=== PATIENT | female | born 1985 | race African-American/Black ===

== ENCOUNTER 2017-08-01 11:07 | Emergency (ER) | payer MEDICAID ==
[~2017-08-01] VITALS: Ht 170.2 cm; Wt 110.0 kg
[~2017-08-01 11:07] MED LIST: FERR325C PO; IBUP-1008 PO; MULT-1116 PO
[2017-08-01] MEDS ORDERED: ACETAMINOPHEN 325MG TABLET PO STA (11:18)
[2017-08-01] MEDS ORDERED: SODIUM CHLORIDE 0.9% 1000ML BAG (SEPSIS BOLUS) IV ONE (11:30)
[2017-08-01 11:55] LABS: HEMATOCRIT. 41.8 % (36.0-48.0); HEMOGLOBIN. 13.9 g/dL (12.0-16.0); MEAN CORPUSCULAR HEMOGLOBIN 29.3 pg (28.0-32.0); MEAN CORPUSCULAR VOLUME 88.1 fL (81.0-99.0); MEAN PLATELET VOLUME 9.8 fl (7.4-10.4); PLATELET 145 x1000/uL (130-400); RED BLOOD CELL COUNT 4.75 mill/uL (4.2-5.4); RED CELL DISTRIBUTION WIDTH 14.5 % (11.6-14.6)
[2017-08-01 11:58] LABS: PROTHROMBIN TIME 10.9 sec (9.4-11.6)
[2017-08-01 12:07] LABS: B-HCG QUANTITATIVE < 1 mIU/mL (<3); CARBON DIOXIDE 22 mEq/L (21-32); CHLORIDE 108 mEq/L (98-107)
[2017-08-01 12:19] LABS: CLARITY URINE CLOUDY (CLEAR); COLOR URINE YELLOW (YELLOW); KETONES URINE NEGATIVE (NEGATIVE); LEUKOCYTE ESTERASE URINE 1+ (NEGATIVE); NITRITE URINE NEGATIVE (NEGATIVE); OCCULT BLOOD URINE 3+ (NEGATIVE); PH URINE 6.5 (4.5-8.0); PROTEIN URINE NEGATIVE (NEGATIVE); SPECIFIC GRAVITY URINE 1.026 (1.005-1.030)
[2017-08-01 12:43] LABS: PLATELET ESTIMATE NORMAL
[2017-08-01] MEDS ORDERED: HYDRALAZINE 20MG/ML VIAL IV ONE (13:00)
[2017-08-01] MEDS ORDERED: CEFTRIAXONE 1 G PREMIX 50 ML IV ONE (13:00)
[2017-08-01] MEDS ORDERED: AZITHROMYCIN 500 MG in DEXT 5% WATER 250 ML IV ONE (13:00)
[2017-08-01 15:45] VITALS: BP 148/88
== END 2017-08-01 16:03 | disposition home or self-care (01) ==
LOC: ER 11:08
DX: J11.00 Influenza due to unidentified influenza virus with unspecified type of pneumonia (principal); N30.00 Acute cystitis without hematuria; I10 Essential (primary) hypertension; R42 Dizziness and giddiness; R79.1 Abnormal coagulation profile
CPT/HCPCS: 36415; 70450; 71045; 80053; 81001; 81025; 83605; 84702; 85025; 85610; 87040; 87804; 93005; 96365; 96366; 96368; 99285; J0456; J0696; J7030; Z7610; J7060

== ENCOUNTER 2022-05-25 14:43 | Emergency (ER) | payer MEDICAID, OTHER ==
[~2022-05-25] VITALS: Ht 172.7 cm; Wt 100.0 kg
[2022-05-25 14:53] VITALS: BP 172/83
[2022-05-25] MEDS ORDERED: ACETAMINOPHEN 325MG TABLET PO ONE (17:45)
[2022-05-25] MEDS ORDERED: IBUPROFEN 400MG TABLET PO ONE (17:45)
[2022-05-25] MEDS ORDERED: IBUP-2028 MT (18:30)
== END 2022-05-25 18:56 | disposition home or self-care (01) ==
LOC: ER 14:43
DX: M79.602 Pain in left arm (principal); M25.522 Pain in left elbow; M25.532 Pain in left wrist; Z98.890 Other specified postprocedural states; Z79.899 Other long term (current) drug therapy
CPT/HCPCS: 73080; 73090; 81025; 99284